=== PATIENT | female | born 1955 | race Caucasian/White ===

== ENCOUNTER 2017-08-06 15:36 | Emergency (ER) | payer OTHER, MEDICARE ==
[~2017-08-06] VITALS: Ht 162.6 cm; Wt 98.4 kg
[~2017-08-06 15:36] MED LIST: ASPIRIN EC81 M1 PO; ASPIRIN81 M4 PO; ATIVAN0.5 M1 PO; CLINDAMYCIN HC300 M1 PO; DILAUDID2 M1 PO; DULOXETINE60 MG PO; HUMALOG PEN100 U/ML SC; INSULIN HUMA100 U/ML SC; LEVOTHYROXIN0.075 M1 PO; LEVOTHYROXINE75 MCG PO; LITHIUM CARBON150 MG PO; LOSARTAN POTASS50 M1 PO; LOSARTAN POTASS50 MG PO; METFORMIN ER500 MG; METFORMIN ER500 MG PO; METFORMIN HCL500 M4 PO; METOPROLOL SUCC25 M1 PO; METOPROLOL SUCC25 MG PO; NOVOLOG100 UNIT/2 SC; NUCYNTA50 MG PO; OMEPRAZOLE20 M2 PO; PERCOCET 325 MG1 TAB PO; PROTONIX40 MG PO; QUESTRAN4 GM/9 GM PO; SIMVASTATIN20 M2 PO; SIMVASTATIN20 MG PO; TORADOL10 MG PO; TRAMADOL HCL50 M1 PO; ULTRAM(MONOGRAP50 MG PO; VISTARIL25 MG PO; VITAMIN B-121000 MC3 PO; VITAMIN C500 M6 PO; VITAMIN D2000 UNI1 PO; VITAMIN E100 UNI2 PO
[2017-08-06 16:19] LABS: ABSOLUTE BASOPHIL COUNT 0 /CUMM (0.0-0.2); ABSOLUTE EOSINOPHIL COUNT 0.4 /CUMM (0.0-0.7); ABSOLUTE LYMPH COUNT 3.6 /CUMM (1.2-3.4); ABSOLUTE MONOCYTE COUNT 0.8 /CUMM (0.10-0.60); BASOPHIL % 0.3 % (0.0-2.0); EOSINOPHIL % 3.4 % (0-5); GRANULOCYTE % 62.2 % (42.2-75.2); HEMATOCRIT 42.9 % (37-47); MEAN CORPUSCULAR HGB 26.6 PG (27.0-31.0); MEAN CORPUSCULAR HGB CONC 33.1 G/DL (33.0-37.0); MEAN CORPUSCULAR VOLUME 80.4 FL (81.0-99.0); MEAN PLATELET VOLUME 8.1 FL (7.4-10.4); PLATELET COUNT 364 /CUMM (130-400); RBC DISTRIBUTION WIDTH 14.7 % (11.5-14.5); RED BLOOD CELL CT 5.33 /CUMM (4.20-5.40); WHITE BLOOD CELL COUNT 12.9 /CUMM (4.8-10.8)
--- NOTE | 2017-08-06 19:50 | ED CARDIAC/CP/PALPITATIONS ---
History of Present Illness General Chief Complaint: Chest Pain Stated Complaint: CP Source: patient, family, old records Exam Limitations: no limitations Vital Signs & Intake/Output Vital Signs & Intake/Output Vital Signs Date Time Temp Pulse Resp B/P B/P Pulse O2 O2 Flow FiO2 Mean Ox Delivery Rate 08/06 1844 97.6 90 20 119/70 98 08/06 1556 98.1 93 18 125/87 96 Room Air Allergies Coded Allergies: Penicillins (Severe, ANAPHYLAXIS 07/01/15) hydrocodone (Intermediate, ITCHY, VOMITING 10/05/15) oxycodone (From PERCOCET) (Intermediate, ITCHING, VOMITING 10/05/15) Reconcile Medications Ascorbate Calcium (Vitamin C) 500 MG TABLET 1 TAB PO DAILY SUPPLEMENT ( Reported) Aspirin (Ecotrin*) 81 MG TABLET. 1 TAB PO DAILY heart health Cholecalciferol (Vitamin D3) (Vitamin D) (Unknown Strength) TABLET (Unknown Dose) PO DAILY SUPPLEMENT (Reported) Cyanocobalamin (Vitamin B-12) (Unknown Strength) TABLET (Unknown Dose) PO DAILY SUPPLEMENT (Reported) Hydromorphone HCl (Dilaudid) 2 MG TABLET 1 TAB PO Q6P PRN PAIN Insulin Aspart (Novolog) (Unknown Strength) VIAL (Unknown Dose) SC DAILY INSULIN PUMP (Reported) Levothyroxine Sodium 75 MCG TABLET 1 TAB PO QPM THYROID (Reported) Lorazepam (Ativan) 0.5 MG TABLET 1 TAB PO DAILY NEEDED PRN ANXIETY/INSOMNIA Losartan Potassium 50 MG TABLET 1 TAB PO DAILY BP (Reported) Metformin HCl (Metformin HCl ER) 500 MG TAB.ER.24H 2 TAB PO QPM DIABETES ( Reported) Metoprolol Succinate 25 MG TAB.ER.24H 1 TAB PO DAILY HEART (Reported) Omeprazole 20 MG CAPSULE. 1 CAP PO DAILY STOMACH HEALTH Simvastatin (Simvastatin*) 20 MG TABLET 1 TAB PO QPM CHOLESTEROL (Reported) Vitamin E Mixed (Vitamin E) (Unknown Strength) TABLET (Unknown Dose) PO DAILY SUPPLEMENT (Reported) Core Measure Meds Pre-Hospital aspirin Triage Note: PT STATES SHE IS HAVING CHEST PAIN IN THE MIDDLE OF HER CHEST WITH NO RADIATING PAIN. PT STATES SHE IS NOT SOB AND WANTED TO LEAVE AFTER HER EKG WAS COMPLETED AND SAID IT WAS OK. PT MADE AWARE THAT THERE ARE OTHER INDICATORS OF [place] THAT EKG. DR. WAGNER SPOKE WITH PT AND CONVINCED HER TO STAY FOR TESTING. Triage Nurses Notes Reviewed? yes Onset: Yesterday Duration: day(s):, intermittent Timing: recent history Quality/Severity: mild, moderate, aching Location: epigastric Radiation: no radiation Activities at Onset: none Prior Chest Pain/Card Workup: non-cardiac, echocardiography Nitro Today/Relief: no nitro taken today Aspirin Today: 325 mg x 1, provided at home Associated Symptoms: abdominal pain LMP (ages 10-50): post menopausal : No Patient currently breastfeeds: No HPI: 1 day prior to admission patient complains of substernal/epigastric discomfort mild to moderate waxing and waning now becoming more constant associated with anorexia. She denies fever chills nausea vomiting diarrhea shortness of breath cough headache dysuria rash bleeding. Past History Travel History Traveled to [place] past 21 day No Medical History Any Pertinent Medical History? see below for history Neurological: NONE EENT: NONE Cardiovascular: hypertension, hyperlipidemia, TACHYCARDIA Respiratory: NONE Gastrointestinal: pancreatitis, post-ERCP pancreatitis 1991, done after cholecystectomy. 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 FH: Alzheimers disease FATHER, , Age 60+; Cause: Myocardial infarction. FH: heart disease SISTER FH: kidney cancer grand mother maternal FH: colon cancer grand mother paternal FH: breast cancer Hx Contributory? No Review of Systems Review of Systems Constitutional: Reports: no symptoms. EENTM: Reports: no symptoms. Respiratory: Reports: no symptoms. Cardiovascular: Reports: see HPI, chest pain. GI: Reports: see HPI, abdominal pain. Genitourinary: Reports: no symptoms. Musculoskeletal: Reports: no symptoms. Skin: Reports: no symptoms. Neurological/Psychological: Reports: no symptoms. Hematologic/Endocrine: Reports: no symptoms. Immunologic/Allergic: Reports: no symptoms. All Other Systems: Reviewed and Negative Physical Exam Physical Exam General Appearance: well developed/nourished, alert, awake, anxious, comfortable , obese Head: atraumatic, normal appearance Eyes: Bilateral: normal appearance, PERRL, EOMI. Ears, Nose, Throat: normal pharynx, normal ENT inspection, hearing grossly normal Neck: normal inspection, supple, full range of motion, no midline tenderness Respiratory: normal breath sounds, chest non-tender, no respiratory distress, quiet respiration, lungs clear Cardiovascular: regular rate/rhythm, normal peripheral pulses, norml femoral pulses equa Peripheral Pulses: 4+ carotid (R), 4+ carotid (L) Gastrointestinal: normal bowel sounds, soft, non-tender, no organomegaly Back: normal inspection, normal range of motion Extremities: normal inspection, normal capillary refill, normal range of motion, no edema Neurologic/Psych: no motor/sensory deficits, awake, alert, oriented x 3, normal gait, normal mood/affect, seaman II-XII nml as tested Reflexes: 2+: bicep (R), bicep (L). Skin: intact, normal color, warm/dry Lymphatic: no anterior cervical marcos Core Measures ACS in differential dx? Yes No ASA d/t Pharmacological CI CVA/TIA Diagnosis Yes Sepsis Present: No Sepsis Focused Exam Completed? No Progress Differential Diagnosis: cholecystitis, costochondritis, hyperkalemia, hypovolemia, pancreatitis, pneumonia Plan of Care: Orders Procedure Date/time Status EKG 08/06 1936 Active TROPONIN LEVEL 08/06 1900 Complete EKG 08/06 1900 Active TROPONIN LEVEL 08/06 1556 Complete LIPASE 08/06 1556 Complete COMPREHENSIVE METABOLIC PANEL 08/06 1556 Complete CBC WITHOUT DIFFERENTIAL 08/06 1556 Complete EKG 08/06 1536 Active Laboratory Tests 08/06/17 193: Troponin I Cancelled 08/06/17 1918: Troponin I < 0.01 08/06/17 1602: Anion Gap 15, Estimated GFR > 60, BUN/Creatinine Ratio 20.0, Glucose 218 H, Calcium 10.1, Total Bilirubin 0.4, AST 17, ALT 21, Alkaline Phosphatase 112, Troponin I < 0.01, Total Protein 7.7, Albumin 4.4, Globulin 3.3, Albumin/ Globulin Ratio 1.3, Lipase 90, CBC w Diff NO MAN DIFF REQ, RBC 5.33, MCV 80.4 L , MCH 26.6 L, MCHC 33.1, RDW 14.7 H, MPV 8.1, Gran % 62.2, Lymphocytes % 28.1, Monocytes % 6.0, Eosinophils % 3.4, Basophils % 0.3, Absolute Granulocytes 8.0 H, Absolute Lymphocytes 3.6 H, Absolute Monocytes 0.8 H, Absolute Eosinophils 0.4, Absolute Basophils 0 Diagnostic Imaging: Viewed by Me: Radiology Read. Discussed w/RAD: Radiology Read. CXR Impression: no acute abnormality Initial ED EKG: normal axis, normal intervals, normal p-waves, normal QRS complex, normal sinus rhythm, nonspecific ST T wave chg Prior EKG: unchanged Repeat EKG: changed (flipped t V2) Rhythm Strip: normal sinus rhythm Comments: Symptoms gone after pepcid, reglan Departure Departure Time of Disposition: 2042 Disposition: HOME OR SELF CARE Condition: Stable Clinical Impression Primary Impression: GERD (gastroesophageal reflux disease) Secondary Impressions: Chest pain syndrome Referrals: Eddi BEDOYA,Trip Rutledge (PCP/Family) Departure Forms: Customer Survey General Discharge Information Prescriptions: Current Visit Scripts Metoclopramide HCl (Reglan) 1 TAB PO 4 TIMES/DAY PRN GI upset #30 TAB 30 minutes before meals and bedtime Famotidine (Pepcid) 1 TAB PO BID #60 TAB Critical Care Note Critical Care Note Critical Care Time: 30-74 min (40)
--- NOTE | 2017-08-06 20:10 | RADIOLOGY REPORT ---
EXAMINATION: XR CHEST CLINICAL INFORMATION: 62-year-old woman with chest pain. COMPARISON: 10/03/2015 chest radiograph TECHNIQUE: 2 views of the chest were obtained. FINDINGS: The lungs are well expanded, without evidence of focal airspace consolidation or overt pulmonary edema. Chronic interstitial prominence appears relatively unchanged. Heart size is within the range of normal. There are no pleural effusions. Degenerative changes are seen throughout the thoracic spine with DISH and endplate remodeling. IMPRESSION: No convincing radiographic evidence of an acute cardiopulmonary process.
[2017-08-06] MEDS ORDERED: REGLAN10 M1 PO (20:45)
[2017-08-06] MEDS ORDERED: PEPCID20 M1 PO (20:45)
[2017-08-06 20:52] VITALS: BP 122/87
== END 2017-08-06 20:52 ==
LOC: ERH 15:36
PROVIDERS: Internal Medicine
DX: K21.9 Gastro-esophageal reflux disease without esophagitis (principal); R07.89 Other chest pain
CPT/HCPCS: 71046; 93005; 93010; 96374; 96375; 99291; J2765

== ENCOUNTER 2017-09-30 21:54 | Inpatient (IN) | payer OTHER, MEDICARE ==
[~2017-09-30] VITALS: Ht 162.6 cm; Wt 55.0 kg
[~2017-09-30 21:54] MED LIST changes: +PEPCID20 M1 PO; +REGLAN10 M1 PO
[2017-09-30 22:40] LABS: ABSOLUTE BASOPHIL COUNT 0 /CUMM (0.0-0.2); ABSOLUTE EOSINOPHIL COUNT 0.4 /CUMM (0.0-0.7); ABSOLUTE GRANULOCYTE CT 10.6 /CUMM (1.4-6.5); ABSOLUTE LYMPH COUNT 1.9 /CUMM (1.2-3.4); ABSOLUTE MONOCYTE COUNT 0.8 /CUMM (0.10-0.60); BASOPHIL % 0.1 % (0.0-2.0); EOSINOPHIL % 2.6 % (0-5); GRANULOCYTE % 77.4 % (42.2-75.2); HEMATOCRIT 40.9 % (37-47); MEAN CORPUSCULAR HGB 26.9 PG (27.0-31.0); MEAN CORPUSCULAR HGB CONC 33.8 G/DL (33.0-37.0); MEAN CORPUSCULAR VOLUME 79.5 FL (81.0-99.0); MEAN PLATELET VOLUME 8.1 FL (7.4-10.4); PLATELET COUNT 291 /CUMM (130-400); RBC DISTRIBUTION WIDTH 14.9 % (11.5-14.5); RED BLOOD CELL CT 5.15 /CUMM (4.20-5.40); WHITE BLOOD CELL COUNT 13.7 /CUMM (4.8-10.8)
[2017-09-30 22:46] LABS: PT 12.7 SEC (9.4-12.5)
--- NOTE | 2017-09-30 23:36 | CT SCAN REPORT ---
EXAMINATION: CT NECK WITH CONTRAST CLINICAL INFORMATION: Neck swelling. Rule out abscess. COMPARISON: None TECHNIQUE: Multidetector volumetric imaging of the neck was performed after administration of 95 mL of Optiray 320 IV contrast. Coronal and sagittal reformatted images were obtained and reviewed. DLP: 548 mGy-cm FINDINGS: There is asymmetric enlargement and abnormal enhancement involving the right parotid gland, suggestive of edema. There is adjacent inflammation. There is no focal mass identified. No evidence of stone. Mildly prominent adjacent lymph nodes are seen. For instance, along the right jugular chain there is a 1.6 cm long axis node, series 2 image 62. The submandibular glands are normal. No contour abnormality is seen within the oral cavity or pharyngeal mucosal space. The laryngeal structures are normal. The parapharyngeal fat is preserved. No extra mucosal soft tissue mass or fluid collection is seen. No retropharyngeal fluid collection is seen. The thyroid gland is somewhat heterogeneous with subcentimeter nodules. The superior mediastinum is unremarkable. The lung apices are clear. The mastoid air cells and visualized portions of the paranasal sinuses are well-aerated. The temporomandibular joints are normal. No periapical disease is identified. No acute osseous abnormality. Multilevel degenerative changes are noted in the spine. The imaged portions of the brain parenchyma are unremarkable. IMPRESSION: Asymmetric prominence of the right parotid gland with increased enhancement and adjacent inflammation, suggestive of parotiditis. Mildly prominent adjacent lymph nodes are likely reactive. There is no fluid collection identified.
--- NOTE | 2017-10-01 00:19 | ED GENERAL ADULT ---
History of Present Illness General Chief Complaint: Facial or Head Injury Stated Complaint: PT RT SIDE OF FACE SWOLLEN TO THE LT SIDE Source: patient Exam Limitations: no limitations Vital Signs & Intake/Output Vital Signs & Intake/Output Vital Signs Date Time Temp Pulse Resp B/P B/P Pulse O2 O2 Flow FiO2 Mean Ox Delivery Rate 10/01 0002 Room Air 09/30 2342 92 20 138/74 96 Room Air 09/30 2211 98.2 99 18 138/80 96 Room Air ED Intake and Output 10/01 0000 09/30 1200 Intake Total 1000 Output Total Balance 1000 Intake, IV 1000 Patient 217 lb Weight Weight Reported by Patient Measurement Method Allergies Coded Allergies: Penicillins (Severe, ANAPHYLAXIS 07/01/15) hydrocodone (Intermediate, ITCHY, VOMITING 10/05/15) oxycodone (From PERCOCET) (Intermediate, ITCHING, VOMITING 10/05/15) Reconcile Medications Ascorbate Calcium (Vitamin C) 500 MG TABLET 1 TAB PO DAILY SUPPLEMENT ( Reported) Aspirin (Ecotrin*) 81 MG TABLET.DR 1 TAB PO DAILY heart health Cholecalciferol (Vitamin D3) (Vitamin D) (Unknown Strength) TABLET (Unknown Dose) PO DAILY SUPPLEMENT (Reported) Cyanocobalamin (Vitamin B-12) (Unknown Strength) TABLET (Unknown Dose) PO DAILY SUPPLEMENT (Reported) Famotidine (Pepcid) 20 MG TABLET 1 TAB PO BID GERD Hydromorphone HCl (Dilaudid) 2 MG TABLET 1 TAB PO Q6P PRN PAIN Insulin Aspart (Novolog) (Unknown Strength) VIAL (Unknown Dose) SC DAILY INSULIN PUMP (Reported) Levothyroxine Sodium 75 MCG TABLET 1 TAB PO QPM THYROID (Reported) Lorazepam (Ativan) 0.5 MG TABLET 1 TAB PO DAILY NEEDED PRN ANXIETY/INSOMNIA Losartan Potassium 50 MG TABLET 1 TAB PO DAILY BP (Reported) Metformin HCl (Metformin HCl ER) 500 MG TAB.ER.24H 2 TAB PO QPM DIABETES ( Reported) Metoclopramide HCl (Reglan) 10 MG TABLET 1 TAB PO 4 TIMES/DAY PRN GI upset 30 minutes before meals and bedtime Metoprolol Succinate 25 MG TAB.ER.24H 1 TAB PO DAILY HEART (Reported) Omeprazole 20 MG CAPSULE.DR 1 CAP PO DAILY STOMACH HEALTH Simvastatin (Simvastatin*) 20 MG TABLET 1 TAB PO QPM CHOLESTEROL (Reported) Vitamin E Mixed (Vitamin E) (Unknown Strength) TABLET (Unknown Dose) PO DAILY SUPPLEMENT (Reported) Triage Note: PT FROM HOME C/O SWELLING FROM PTS RIGHT SIDE OF NECK PROGRESSIVELY SPREADING TO PTS RIGHT SIDE OF FACE AND CHEST PER PT. PT NOTED TO HAVE SWELLING AND REDNESS. PT STATES THE LUMP FORMED ON FRIDAY NIGHT, HAS F/U WITH ENT AND PCP. PCP STATED IT MAY BE A BLOCKED SALVIA GLAND, ENT STATED POSSIBLY RELATED TO DIABETES. PTS BP ELEVATED IN TRIAGE 138/80. PT TAKING TRAMADOL, TYLENOL AND CLINDAMYCIN. BSG IN TRIAGE 242. PT IS ON A NOVOLOG PUMP AND METFORMIN AT HOME. Triage Nurses Notes Reviewed? yes Onset: Abrupt Duration: day(s): (2-3), constant, continues in ED, getting worse Timing: single episode today Injury Environment: home Severity: moderate, severe Severity Numbers: 8 No Modifying Factors: none LMP (ages 10-50): unknown : No Patient currently breastfeeds: No HPI: 62-year-old female history of hypertension hyperlipidemia insulin-dependent diabetes presents for evaluation of pain and swelling in her right parotid area. Patient reports this started about 3 days ago to be getting worse. She is on ear nose and throat doctor and her primary care doctor yesterday and was started on clindamycin which she has been taking without improvement. She points she also tried using lemon drops but this greatly increased her pain. The swelling has been getting worse since starting the antibiotics and is now spreading across the midline of her neck and into her upper jaw. She feels it has been difficult for her to eat and drink because it difficult to open her mouth. She has not had fevers. No drooling. No shortness of breath. No trauma. (Remington James) Past History Travel History Traveled to [place] past 21 day No Medical History Any Pertinent Medical History? see below for history Neurological: NONE EENT: NONE Cardiovascular: hypertension, hyperlipidemia, TACHYCARDIA Respiratory: NONE Gastrointestinal: pancreatitis, post-ERCP pancreatitis 1991, done after cholecystectomy. 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 FH: Alzheimers disease FATHER, , Age 60+; Cause: Myocardial infarction. FH: heart disease SISTER FH: kidney cancer grand mother maternal FH: colon cancer grand mother paternal FH: breast cancer Hx Contributory? No (Remington James) Review of Systems Review of Systems Constitutional: Reports: no symptoms. EENTM: Reports: see HPI, throat pain, throat swelling, mouth pain. Respiratory: Reports: no symptoms. Cardiovascular: Reports: no symptoms. GI: Reports: no symptoms. Genitourinary: Reports: no symptoms. Musculoskeletal: Reports: no symptoms. Skin: Reports: no symptoms. Neurological/Psychological: Reports: no symptoms. Hematologic/Endocrine: Reports: no symptoms. Immunologic/Allergic: Reports: no symptoms. All Other Systems: Reviewed and Negative (Remington James) Physical Exam Physical Exam General Appearance: well developed/nourished, no apparent distress, alert, awake Head: atraumatic, normal appearance Eyes: Bilateral: normal appearance, PERRL, EOMI. Ears, Nose, Throat: hearing grossly normal, THERE IS SWELLING INDURATION AND EXQUISITE TENDERNESS OVER THE RIGHT PAROTID GLAND AREA. tHE SWELLING EXTENDS UP TO THE tmj SUPERIORLY AND THE SUBMANDIBULAR AREA NEAR THE TRACHEA INFERIORLY. tHERE IS NO FOCAL FLUCTUANT AREAS NOTED DISCHARGE NO ERYTHEMA. rANGE OF MOTION OF THE MANDIBLE IS REDUCED DUE TO PAIN AND SWELLING PATIENT IS HANDLING SECRETIONS. eXAMINATION OF THE MOUTH IS REDUCED DUE TO PAIN TRISMUS PRESENT Neck: supple, full range of motion, lymphadenopathy (R), tender lateral Respiratory: normal breath sounds, chest non-tender, no respiratory distress, lungs clear Cardiovascular: regular rate/rhythm, normal peripheral pulses Peripheral Pulses: 2+ radial (R), 2+ radial (L) Gastrointestinal: soft, non-tender Back: normal inspection, normal range of motion, no vertebral tenderness Extremities: normal inspection, normal range of motion, no edema Neurologic/Psych: no motor/sensory deficits, awake, alert, oriented x 3, normal gait Skin: intact, normal color, warm/dry Lymphatic: adenopathy Core Measures ACS in differential dx? No CVA/TIA Diagnosis: No Sepsis Present: No Sepsis Focused Exam Completed? No (Ryan SCHMIDRemington) Progress Differential Diagnoses I considered the following diagnoses in my evaluation of the patient: [ Parotiditis, abscess, mumps, MALIGNANCY ] Plan of Care: Orders Procedure Date/time Status Nothing by Mouth 10/01 B Active Saline Lock 10/01 206 Active Misc Message 10/01 206 Active ED Holding Orders 10/01 206 Active Admit to inpatient 10/01 206 Active Vital Signs 10/01 206 Active Code Status 10/01 206 Active Add-on Test (ER Only) 10/01 0003 Active BLOOD CULTURE 10/01 2 Active LACTIC ACID 09/30 2229 Complete PROTHROMBIN TIME 09/30 2217 Complete COMPREHENSIVE METABOLIC PANEL 09/30 2217 Complete CBC WITHOUT DIFFERENTIAL 09/30 2217 Complete Current Medications Sig/Talon Start time Last Medication Dose Stop Time Status Admin Ketorolac 15 MG ONE ONE 10/01 14 CAN Tromethamine 10/02 15 (Toradol) Ketorolac 0 .STK-MED ONE 10/02 7 CAN Tromethamine (Toradol) Sodium Chloride 1,000 ML ONCE ONE 09/30 2229 AC 10/01 (Normal Saline 0.9%) 10/01 0509 0118 Sodium Chloride 1,000 ML ONCE ONE 09/30 2214 AC 09/30 (Normal Saline 0.9%) 10/01 0454 2237 Laboratory Tests 09/30/172229: Anion Gap 14, Estimated GFR > 60, BUN/Creatinine Ratio 11.7, Glucose 239 H, Lactic Acid 0.8, Calcium 9.4, Total Bilirubin 0.7, AST 19, ALT 28, Alkaline Phosphatase 101, Total Protein 7.3, Albumin 4.0, Globulin 3.3, Albumin/Globulin Ratio 1.2, PT 12.7 H, INR 1.16, CBC w Diff NO MAN DIFF REQ, RBC 5.15, MCV 79.5 L, MCH 26.9 L, MCHC 33.8, RDW 14.9 H, MPV 8.1, Gran % 77.4 H, Lymphocytes % 14.0 L, Monocytes % 5.9, Eosinophils % 2.6, Basophils % 0.1, Absolute Granulocytes 10.6 H, Absolute Lymphocytes 1.9, Absolute Monocytes 0.8 H, Absolute Eosinophils 0.4, Absolute Basophils 0 Microbiology 10/01 25 BLOOD: Blood Culture - RECD 10/02 15 BLOOD: Blood Culture - RECD Patient is here with gradually worsening parotiditis now causing trismus. The swelling extends in the TMJ to the midline trachea. ITis very indurated. Patient is afebrile but has a white count of 13. CT scan shows parotiditis without fluid collection. Patient has been on Clinda but is getting worse. IV fluids Toradol Tylenol ordered. Patient was given a dose of IV Clinda. PT REQUIRES admission to the hospital due to failed outpatient treatment worsening swelling worsening pain trismus not tolerating fluids. She will require IV fluids and IV pain meds IV antibiotics and IV steroids ENT case discussed with Dr. Renteria he agrees Diagnostic Imaging: Viewed by Me: CT Scan. Discussed w/RAD: CT Scan. Radiology Impression: PATIENT: DARWIN MULLEN PRESENT AGE: 62 PATIENT ACCOUNT NO: [id number] : 57 LOCATION: [facility] ORDERING PHYSICIAN: Chavo Fine DO SERVICE DATE: 09/30/17 EXAM TYPE: CAT - CT NECK W IV CONTRAST EXAMINATION: CT NECK WITH CONTRAST CLINICAL INFORMATION: Neck swelling. Rule out abscess. COMPARISON: None TECHNIQUE: Multidetector volumetric imaging of the neck was performed after administration of 95 mL of Optiray 320 IV contrast. Coronal and sagittal reformatted images were obtained and reviewed. DLP: 548 mGy-cm FINDINGS: There is asymmetric enlargement and abnormal enhancement involving the right parotid gland, suggestive of edema. There is adjacent inflammation. There is no focal mass identified. No evidence of stone. Mildly prominent adjacent lymph nodes are seen. For instance, along the right jugular chain there is a 1.6 cm long axis node, series 2 image 62. The submandibular glands are normal. No contour abnormality is seen within the oral cavity or pharyngeal mucosal space. The laryngeal structures are normal. The parapharyngeal fat is preserved. No extra mucosal soft tissue mass or fluid collection is seen. No retropharyngeal fluid collection is seen. The thyroid gland is somewhat heterogeneous with subcentimeter nodules. The superior mediastinum is unremarkable. The lung apices are clear. The mastoid air cells and visualized portions of the paranasal sinuses are well-aerated. The temporomandibular joints are normal. No periapical disease is identified. No acute osseous abnormality. Multilevel degenerative changes are noted in the spine. The imaged portions of the brain parenchyma are unremarkable. IMPRESSION: Asymmetric prominence of the right parotid gland with increased enhancement and adjacent inflammation, suggestive of parotiditis. Mildly prominent adjacent lymph nodes are likely reactive. There is no fluid collection identified. DICTATED BY: Gio Tavarez MD DATE/TIME DICTATED:01/08 PRODUCTION CONSULTANT:FIORELLA DATE/TIME TRANSCRIBED:09/30/172327 CONFIDENTIAL, DO NOT COPY WITHOUT APPROPRIATE AUTHORIZATION. <Electronically signed in Other Vendor System> SIGNED BY: Gio Tavarez MD 09/30/172335 Initial ED EKG: none (Remington James) Departure Departure Disposition: STILL A PATIENT Condition: Stable Referrals: Eddi BEDOYA,Trip Rutledge (PCP/Family) Departure Forms: Customer Survey General Discharge Information Admission Note Spoke With: Nino Ba MD Documentation of Exam: Documentation of any treatments & extenuating circumstances including Concerns Regarding Discharge (functional status, medication knowledge or non-compliance, living conditions, etc.) that warrant an admission rather than observation: [ Serial labs, IV fluids, IV pain meds, IV antibiotics, ENT] (Remington James) Departure Clinical Impression Primary Impression: Parotiditis Secondary Impressions: Sepsis PA/CORE CLEANER Co-Sign Statement Statement: ED Attending supervision documentation- [x] I saw and evaluated the patient. I have also reviewed all the pertinent lab results and diagnostic results. I agree with the findings and the plan of care as documented in the PA's/CORE CLEANER's documentation. 10/01/17, 1:15am... pt with induration and tenderness, that appears to be worsening by patient's history... pt already on oral abx... pt merits iv abx, iv fluids, ent consult in AM... call placed to ENT. [] I have reviewed the ED Record and agree with the PA's/CORE CLEANER's documentation. [] Additions or exceptions (if any) to the PAs/CORE CLEANER's note and plan are summarized below: [] (Dexter BEDOYA,Abhishek Ruiz) Critical Care Note Critical Care Note Critical Care Time: non-applicable (Remington James)
--- NOTE | 2017-10-01 02:57 | History & Physical ---
Ignacio BEDOYA,[facility] 10/01/17 0255: General Information and HPI MD Statement: I have seen and personally examined DARWIN JULES and documented this H&P. The patient is a 62 year old F who presented with a patient stated chief complaint of [FACIAL SWELLING]. Source of Information: patient Exam Limitations: no limitations History of Present Illness: According to patient, she was in her usual state of health until Friday when she incidentally noticed some swelling on the right side of her face. But when she woke up Friday morning the swelling was worse, spreading to her neck and the Parotid area was indurated and extremely tender. She went to see ENT specialist and she was told to use lemon balls made the swelling extremely worse and was also started on clindamycin which she has been taking since yesterday without any relief. She had a very low grade fever of 100 but denies any chills. Also denies any difficulty breathing but does mention difficulty swallowing because of the tenderness. Also reports decreased fluid intake recently. Allergies/Medications Allergies: Coded Allergies: Penicillins (Severe, ANAPHYLAXIS 07/01/15) hydrocodone (Intermediate, ITCHY, VOMITING 10/05/15) oxycodone (From PERCOCET) (Intermediate, ITCHING, VOMITING 10/05/15) Home Med list Ascorbate Calcium (Vitamin C) 500 MG TABLET 1 TAB PO DAILY SUPPLEMENT ( Reported) Aspirin (Ecotrin*) 81 MG TABLET.DR 1 TAB PO DAILY heart health Cholecalciferol (Vitamin D3) (Vitamin D) (Unknown Strength) TABLET (Unknown Dose) PO DAILY SUPPLEMENT (Reported) Cyanocobalamin (Vitamin B-12) (Unknown Strength) TABLET (Unknown Dose) PO DAILY SUPPLEMENT (Reported) Famotidine (Pepcid) 20 MG TABLET 1 TAB PO BID GERD Hydromorphone HCl (Dilaudid) 2 MG TABLET 1 TAB PO Q6P PRN PAIN Insulin Aspart (Novolog) (Unknown Strength) VIAL (Unknown Dose) SC DAILY INSULIN PUMP (Reported) Levothyroxine Sodium 75 MCG TABLET 1 TAB PO QPM THYROID (Reported) Lorazepam (Ativan) 0.5 MG TABLET 1 TAB PO DAILY NEEDED PRN ANXIETY/INSOMNIA Losartan Potassium 50 MG TABLET 1 TAB PO DAILY BP (Reported) Metformin HCl (Metformin HCl ER) 500 MG TAB.ER.24H 2 TAB PO QPM DIABETES ( Reported) Metoprolol Succinate 25 MG TAB.ER.24H 1 TAB PO DAILY HEART (Reported) Omeprazole 20 MG CAPSULE.DR 1 CAP PO DAILY STOMACH HEALTH Simvastatin (Simvastatin*) 20 MG TABLET 1 TAB PO QPM CHOLESTEROL (Reported) Vitamin E Mixed (Vitamin E) (Unknown Strength) TABLET (Unknown Dose) PO DAILY SUPPLEMENT (Reported) Past History Travel History Traveled to [place] past 21 day No Medical History Neurological: NONE EENT: NONE Cardiovascular: hyperlipidemia, TACHYCARDIA Respiratory: NONE Gastrointestinal: pancreatitis, post-ERCP pancreatitis 1991, done after cholecystectomy. 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 FH: Alzheimers disease FATHER, , Age 60+; Cause: Myocardial infarction. FH: heart disease SISTER FH: kidney cancer grand mother maternal FH: colon cancer grand mother paternal FH: breast cancer Psychosocial History Who Do You Live With? spouse, child Services at Home: None Primary Language: Frisian Smoking Status: Former Smoker ETOH Use: denies use Illicit Drug Use: marijuana Living Will? no Power of Deployment Specialist/HCP? no Functional Ability ADLs Independent: dressing, eating, toileting, bathing. Ambulation: independent IADLs Independent: shopping, housework, finances, food prep, telephone, transportation , medication admin. Review of Systems Review of Systems Constitutional: Reports: no symptoms. EENTM: Reports: see HPI. Cardiovascular: Reports: no symptoms. Respiratory: Reports: no symptoms. GI: Reports: no symptoms. Genitourinary: Reports: no symptoms. Musculoskeletal: Reports: no symptoms. Skin: Reports: no symptoms. Neurological/Psychological: Reports: no symptoms. Hematologic/Endocrine: Reports: no symptoms. Immunologic/Allergic: Reports: no symptoms. All Other Systems: Reviewed and Negative Exam & Diagnostic Data Last 24 Hrs of Vital Signs/I&O Vital Signs Date Time Temp Pulse Resp B/P B/P Pulse O2 O2 Flow FiO2 Mean Ox Delivery Rate 10/01 0002 Room Air 09/30 2342 92 20 138/74 96 Room Air 09/30 2211 98.2 99 18 138/80 96 Room Air Intake & Output 10/01 0800 10/01 0000 09/30 1600 Intake Total 1000 Output Total Balance 1000 Intake, IV 1000 Patient 217 lb Weight Weight Reported by Patient Measurement Method Physical Exam General Appearance Alert, Oriented X3, Cooperative, No Acute Distress Skin No Rashes, No Breakdown HEENT Atraumatic, PERRLA, EOMI, Swelling on right side of face extending into neck, indurated and tender to touch. Mild erythema over the neck Cardiovascular Regular Rate, Normal S1, Normal S2 Lungs Clear to Auscultation, Normal Air Movement Abdomen Normal Bowel Sounds, Soft, No Tenderness Extremities No Clubbing, No Cyanosis, No Edema Last 24 Hrs of Labs/Fercho: Laboratory Tests 09/30/17 2230: Anion Gap 14, Estimated GFR > 60, BUN/Creatinine Ratio 11.7, Glucose 239 H, Lactic Acid 0.8, Calcium 9.4, Total Bilirubin 0.7, AST 19, ALT 28, Alkaline Phosphatase 101, Total Protein 7.3, Albumin 4.0, Globulin 3.3, Albumin/Globulin Ratio 1.2, PT 12.7 H, INR 1.16, CBC w Diff NO MAN DIFF REQ, RBC 5.15, MCV 79.5 L, MCH 26.9 L, MCHC 33.8, RDW 14.9 H, MPV 8.1, Gran % 77.4 H, Lymphocytes % 14.0 L, Monocytes % 5.9, Eosinophils % 2.6, Basophils % 0.1, Absolute Granulocytes 10.6 H, Absolute Lymphocytes 1.9, Absolute Monocytes 0.8 H, Absolute Eosinophils 0.4, Absolute Basophils 0 Microbiology 10/01 0026 BLOOD: Blood Culture - RECD 10/01 0016 BLOOD: Blood Culture - RECD Diagnostic Data Other Results CT NECK W IV CONTRAST Asymmetric prominence of the right parotid gland with increased enhancement and adjacent inflammation, suggestive of parotiditis. Mildly prominent adjacent lymph nodes are likely reactive. Assessment/Plan Assessment: Ms Jules is a 60 yr old woman w/ a PMH of DM, post procedural pancreatitis, HLD,HTN, tachycardia, anxiety, bipolar disease, depression and Sciatica who came to the ED w/ a chief concern of right-sided neck swelling. Vitals on admission were temperature 98.9, heart rate 99, respiratory rate 18, BP 130/80 and O2 sats 96% on room air. Labs remarkable for WBC count of 13.7 and blood glucose of 239. Neck Ct showed Asymmetric prominence of the right parotid gland with increased enhancement and adjacent inflammation, suggestive of parotiditis. Mildly prominent adjacent lymph nodes which are likely reactive. Problem List; 1. Acute Parotitis - failed outpatient antibiotic treatment 2. Chronic Medical Conditions - Admit the Patient to general medicine floor - Start the on patient IV clindamycin - Dexamethasone 40mg Q8 - She was given 2 L of normal saline in the ER, will hold off on further IV fluid hydration. - ENT consult - US of Parotid gland - Follow up blood cultures - Warm compresses - Encourage PO fluid intake. - Hold metformin and insulin pump and start the patient on NSS, if blood sugars remains elevated because of steroids change to medium dose SS. - Continue rest of home medications. DVT Prophylaxis; Alps and subcutaneous Lovenox Patient is full code As Ranked By This Provider Problem List: 1. Parotiditis Core Measures/Misc (12/08) Acute Coronary Syndrome ACS Diagnosis: No Congestive Heart Failure Congestive Heart Failure Diagnosis No Cerebrovascular Accident CVA/TIA Diagnosis: No VTE (View Protocol) VTE Risk Factors Age>40 No Mechanical VTE Prophylaxis d/t N/A MechProphylax Ordered No VTE Pharm Prophylaxis d/t NA PharmProphylax ordered Sepsis (View protocol) Sepsis Present: No If YES complete Sepsis Event Note If YES complete Sepsis Event Note Nino Ba MD 10/01/17 0303: Core Measures/Misc (12/08) Sepsis (View protocol) If YES complete Sepsis Event Note If YES complete Sepsis Event Note Attending MD Review Statement Attending Statement Attending MD Statement: examined this patient, discuss w/resident/PA/FIELD CROP GROWER, agreed w/resident/PA/FIELD CROP GROWER, reviewed EMR data (avail) Attending Assessment/Plan: 62F PMH hypertension, hyperlipidemia, pancreatitis, bipolar disease, Type 2 diabetes mellitus with right facial swelling for two days, went to her PCP yesterday and was given lemon candies for salivary stone, with rapid worsening of the swelling that spread to her right face, right neck, and left neck. She denies dysphagia or any difficulty swallowing, but does report right cheek pain when she swallows. She is breathing comfortably without any evidence of stridor or obstruction. She was started on Clindamycin yesterday by her ENT in [place]. Denies fever, chills, stiff neck, photophobia, sore throat, chest pain, SOB. 1. Acute right parotitis 2. Failure of outpatient therapy Plan - Admit to general medicine - Clindamycin IV - Dexamethasone 4mg q6h - Monitor fingersticks closely - ENT consult - Sialogogues - Continue home medications - DVT PPx
[2017-10-01 04:52] VITALS: BP 136/84
[2017-10-01 06:39] VITALS: BP 136/84
[2017-10-01 08:44] LABS: ABSOLUTE BASOPHIL COUNT 0.1 /CUMM (0.0-0.2); ABSOLUTE EOSINOPHIL COUNT 0.4 /CUMM (0.0-0.7); ABSOLUTE GRANULOCYTE CT 6.3 /CUMM (1.4-6.5); ABSOLUTE LYMPH COUNT 2.6 /CUMM (1.2-3.4); ABSOLUTE MONOCYTE COUNT 0.5 /CUMM (0.10-0.60); BASOPHIL % 0.5 % (0.0-2.0); EOSINOPHIL % 3.8 % (0-5); GRANULOCYTE % 64.2 % (42.2-75.2); MEAN CORPUSCULAR HGB 27.4 PG (27.0-31.0); MEAN CORPUSCULAR HGB CONC 33.5 G/DL (33.0-37.0); MEAN CORPUSCULAR VOLUME 81.6 FL (81.0-99.0); MEAN PLATELET VOLUME 8.9 FL (7.4-10.4); PLATELET COUNT 246 /CUMM (130-400); RBC DISTRIBUTION WIDTH 14.4 % (11.5-14.5); RED BLOOD CELL CT 4.37 /CUMM (4.20-5.40); WHITE BLOOD CELL COUNT 9.9 /CUMM (4.8-10.8)
--- NOTE | 2017-10-01 09:16 | PN- Housestaff ---
Burton Simmons 10/01/17 0916: Subjective Follow-up For: Acute parotitis Subjective: Pt seen and examined at bedside. States that she had been sucking on a lemon candy which caused pain. States she also has some difficulties eating and drinking 2/2 pain. Pt states that she has not had any fevers/chills/systemic signs. States her ENT doctor is Dr Fritz. Denied any acute events overnight. Agreeable to go to U/S today. Review of Systems Constitutional: Reports: see HPI. Objective Last 24 Hrs of Vital Signs/I&O Vital Signs Date Time Temp Pulse Resp B/P B/P Pulse O2 O2 Flow FiO2 Mean Ox Delivery Rate 10/01 0831 85 136/84 10/01 0831 85 136/84 10/01 0639 97.7 85 18 136/84 97 10/01 0452 97.7 85 18 136/84 97 10/01 0402 97.7 88 18 114/63 98 Room Air 10/01 0002 Room Air 09/30 2342 92 20 138/74 96 Room Air 09/30 2211 98.2 99 18 138/80 96 Room Air Intake & Output 10/01 1600 10/01 0800 10/01 0000 Intake Total 120 1000 Output Total Balance 120 1000 Intake, IV 1000 Intake, Oral 120 Patient 219 lb 217 lb Weight Weight Reported by Patient Reported by Patient Measurement Method Physical Exam General Appearance: Alert, Oriented X3, Cooperative, No Acute Distress Skin: swelling, R cheek Skin Temp/Moisture Exam: Warm/Dry HEENT: Mucous Membr. moist/pink Lymphatic: Prominent submandibular, preauricular nodes Cardiovascular: Regular Rate, Normal S1, Normal S2 Lungs: Clear to Auscultation, Normal Air Movement Abdomen: Soft, No Tenderness Neurological: Strength at 5/5 X4 Ext, Sensation Intact Extremities: No Edema Assessment/Plan Assessment: Ms Jules is a 62yo F with a pmh of DM, HTN, Anxiety, Bipolar Disorder, depression, pancreatitis that presents with r sided facial/parotid area swelling , failed outpatient therapy of Parotitis, admitted for Acute Parotitis #R sided facial swelling -On clindamycin, day 2 (started September 30) -Consider IVF hydration if patient can't tolerate PO 2/2 pain/swelling -Appreciate ENT consult. Will f/u recs -US of Parotid gland today -Will f/u on blood cultures -Warm compresses -Spoke with outpt ENT BINU Solorio, ENT doctor is Dr Banks ([phone]). PA states she will call ENT doctor later and see if they will see patient. Recommended continued use lemon candy, encourage copious amounts of PO fluid intake, massage of area. States if patient is stable can potentially be discharged and follow-up outpatient. #Diabetes #Hypertension IV access DVT prophylaxis Regular diet Disposition Problem List: 1. Parotitis, acute Pain Ratin Pain Location: R cheek Pain Goal: Pain 4 or less Pain Plan: Pain pathway Tomorrow's Labs & Rationales: freddie LyonsYves 10/01/17 1114: Attending MD Review Statement Attending Statement Attending MD Statement: examined this patient, discuss w/resident/PA/SHAFTING CLEANER, agreed w/resident/PA/SHAFTING CLEANER, discussed with family, reviewed EMR data (avail), discussed with nursing, discussed with case mgmt, reviewed images, amended to note Attending Assessment/Plan: 62F PMH hypertension, hyperlipidemia, pancreatitis, bipolar disease, Type 2 diabetes mellitus with right facial swelling for two days admitted for right parotitis with failure of outpateint therapy. She admites to decreased PO intake. Patient is admitted to general medicine and started on Clindamycin IV, Dexamethasone 4mg q6h. She is clinically improving since admisiosn. Follow Cultures and obtain ENT consult. Trial taper off steroids. Advance diet as tolerated. GI/dvt prophyalxis. full code.
[2017-10-01 09:17] LABS: HEMATOCRIT 35.7 % (37-47)
[2017-10-01 14:22] VITALS: BP 120/80
--- NOTE | 2017-10-01 14:37 | Cons- Ear,Nose&Throat ---
General Information and HPI Consulting Request Date of Consult: 10/01/17 Requested By: Yves Lyons MD Reason for Consult: Acute parotitis, right face and neck swelling, right Source of Information: patient Exam Limitations: no limitations History of Present Illness: 62-year-old female who was in her usual state of health until Friday when she incidentally noticed some swelling on the right side of her face. But when she woke up Friday morning cheek swelling was worse and was spreading to her neck. The area was indurated and extremely tender. She went to see ENT specialist. She was prescribed clindamycin and was told to use lemon balls. Lemon balls made the swelling worse. She then developed low grade fever of 100 but denied any chills. Also denies any difficulty breathing but does mention difficulty swallowing because of the tenderness. Also reports decreased fluid intake recently. She has been experiencing mouth dryness. Allergies/Medications Allergies: Coded Allergies: Penicillins (Severe, ANAPHYLAXIS 07/01/15) hydrocodone (Intermediate, ITCHY, VOMITING 10/05/15) oxycodone (From PERCOCET) (Intermediate, ITCHING, VOMITING 10/05/15) Home Med List: Ascorbate Calcium (Vitamin C) 500 MG TABLET 1 TAB PO DAILY SUPPLEMENT ( Reported) Aspirin (Ecotrin*) 81 MG TABLET.DR 1 TAB PO DAILY heart health Cholecalciferol (Vitamin D3) (Vitamin D) (Unknown Strength) TABLET (Unknown Dose) PO DAILY SUPPLEMENT (Reported) Cyanocobalamin (Vitamin B-12) (Unknown Strength) TABLET (Unknown Dose) PO DAILY SUPPLEMENT (Reported) Famotidine (Pepcid) 20 MG TABLET 1 TAB PO BID GERD Hydromorphone HCl (Dilaudid) 2 MG TABLET 1 TAB PO Q6P PRN PAIN Insulin Aspart (Novolog) (Unknown Strength) VIAL (Unknown Dose) SC DAILY INSULIN PUMP (Reported) Levothyroxine Sodium 75 MCG TABLET 1 TAB PO QPM THYROID (Reported) Lorazepam (Ativan) 0.5 MG TABLET 1 TAB PO DAILY NEEDED PRN ANXIETY/INSOMNIA Losartan Potassium 50 MG TABLET 1 TAB PO DAILY BP (Reported) Metformin HCl (Metformin HCl ER) 500 MG TAB.ER.24H 2 TAB PO QPM DIABETES ( Reported) Metoprolol Succinate 25 MG TAB.ER.24H 1 TAB PO DAILY HEART (Reported) Omeprazole 20 MG CAPSULE.DR 1 CAP PO DAILY STOMACH HEALTH Simvastatin (Simvastatin*) 20 MG TABLET 1 TAB PO QPM CHOLESTEROL (Reported) Vitamin E Mixed (Vitamin E) (Unknown Strength) TABLET (Unknown Dose) PO DAILY SUPPLEMENT (Reported) Past History Medical History Neurological: NONE EENT: NONE Cardiovascular: hyperlipidemia, TACHYCARDIA Respiratory: NONE Gastrointestinal: pancreatitis, post-ERCP pancreatitis 1991, done after cholecystectomy. 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 FH: Alzheimers disease FATHER, , Age 60+; Cause: Myocardial infarction. FH: heart disease SISTER FH: kidney cancer grand mother maternal FH: colon cancer grand mother paternal FH: breast cancer Psychosocial History Where Do You Live? Home Who Do You Live With? spouse, child Services at Home: None Primary Language: Cymro Smoking Status: Former Smoker ETOH Use: denies use Illicit Drug Use: marijuana Living Will? no Power of Therapy Manager/HCP? no Functional Ability ADLs Independent: dressing, eating, toileting, bathing. Ambulation: independent IADLs Independent: shopping, housework, finances, food prep, telephone, transportation , medication admin. Review of Systems Review of Systems: Noncontributory Exam & Diagnostic Data Vital Signs and I&O Vital Signs Date Time Temp Pulse Resp B/P B/P Pulse O2 O2 Flow FiO2 Mean Ox Delivery Rate 10/01 1422 98.0 90 20 120/80 98 10/01 0831 85 136/84 10/01 0831 85 136/84 10/01 0639 97.7 85 18 136/84 97 10/01 0452 97.7 85 18 136/84 97 10/01 0402 97.7 88 18 114/63 98 Room Air 10/01 0002 Room Air 09/30 2342 92 20 138/74 96 Room Air 09/30 2211 98.2 99 18 138/80 96 Room Air Intake & Output 10/01 1600 10/01 0800 10/01 0000 09/30 1600 09/30 0800 09/30 0000 Intake Total 120 1000 Output Total Balance 120 1000 Intake, IV 1000 Intake, Oral 120 Patient 219 lb 217 lb Weight Weight Reported by Patient Reported by Patient Measurement Method Well-developed, well-nourished female without acute distress Head: normocephalic, atraumatic Ears: Canals- clear; Tympanic Membranes- clear Nose: Septum- clear; Turbinates-mild hypertrophy ; Airway-patent Oral cavity: Mucosa-dry; Stensen's duct papillasmall amount of purulent drainage expressed Oropharynx: Posterior wall- clear Face/ Neck: Diffusely enlarged, indurated, markedly tender parotid gland, right Swelling and tenderness spreading onto the upper neck No adenopathy CT neck 09/30/2017: Asymmetric prominence of the right parotid gland with increased enhancement and adjacent inflammation, suggestive of parotiditis. Mildly prominent adjacent lymph nodes are likely reactive. WBC 09/30/17 - 13; 10/01/17- 9.9 Assessment/Plan Assessment/Plan 1. Acute parotitis, right 2. Cheek and upper neck cellulitis, right Continue with IV clindamycin 48 hours Again I would anticipate patient would improve enough to go home on oral clindamycin 300 mg every 6 or every 8 hours Discontinue dexamethasone IV and oral hydration Heat compresses to the area and massage Consult Acknowledgment - Thank you for your consult request.
[2017-10-01 21:37] VITALS: BP 120/60
[2017-10-02 06:35] VITALS: BP 120/70
[2017-10-02] MEDS ORDERED: CLINDAMYCIN HC300 M1 PO ×2 (08:21→10:39)
--- NOTE | 2017-10-02 08:23 | Patient Discharge Instructions ---
Discharge Instructions General Discharge Information Special Instructions: - Please continue taking the Clindamycin and head compresses to the infected area. - Please follow up with your primary care physician within 1-2 weeks of discharge. Inform your primary care physician of this admission to [facility]. - Continue your current medications per discharge instructions. - Please watch for these problems: Fever, Chills, Nausea, Vomiting, Shortness of Breath, Productive Cough, Chest Pain/Discomfort, Abdominal Pain, Active Bleeding or Bloody urine/stool. Diet Continue normal diet: Yes Activity Full Activity/No Limits: Yes Acute Coronary Syndrome Inclusion Criteria At DC or during hospital stay patient has or had the following: ACS DIAGNOSIS No Discharge Core Measures Meds if any: Prescribed or Continued at Discharge Meds if any: NOT Prescribed or Continued at Discharge Congestive Heart Failure Inclusion Criteria At DC or during hospital stay patient has or had the following: CHF DIAGNOSIS No Discharge Core Measures Meds if any: Prescribed or Continued at Discharge Meds if any: NOT Prescribed or Continued at Discharge Cerebrovascular accident Inclusion Criteria At DC or during hospital stay patient has or had the following: CVA/TIA Diagnosis No Discharge Core Measures Meds if any: Prescribed or Continued at Discharge Meds if any: NOT Prescribed or Continued at Discharge Venous thromboembolism Inclusion Criteria VTE Diagnosis No VTE Type NONE VTE Confirmed by (Test) NONE Discharge Core Measures - Per Current guidelines, there needs to be overlap - treatment for the first 5 days of Warfarin therapy. - If discharged on Warfarin prior to 5 days of - overlap therapy, the patient will need to be - assessed for post discharge needs including - *Post discharge parental anticoagulation - *Warfarin and/or parental anticoagulation education - *Follow up date to check INR post discharge At least 5 days overlap therapy as Inpatient No Meds if any: Prescribed or Continued at Discharge Note: Overlap Therapy is Warfarin and Anticoagulant Meds if any: NOT Prescribed or Continued at Discharge
[2017-10-02] MEDS ORDERED: PROBIOTIC1 EACH PO ×2 (10:17→10:39)
--- NOTE | 2017-10-02 10:31 | PN- Housestaff ---
See Addendum Subjective Follow-up For: Parotitis Subjective: Pt seen and examined at bedside. Pt states she feels markedly better since yesterday, ENT doctor saw yesterday evening and had cancelled U/S as patient clinically improved significantly. Pt states she can now tolerate PO intake, yesterday was not able to tolerate. Pt state swelling has gone down significantly with massage, warm compresses, lemon candies. Pt state she would like to go home now due to significantly improved clinical course compared to presentation to ED. Review of Systems Constitutional: Reports: see HPI. Objective Last 24 Hrs of Vital Signs/I&O Vital Signs Date Time Temp Pulse Resp B/P B/P Pulse O2 O2 Flow FiO2 Mean Ox Delivery Rate 10/02 0900 86 120/70 10/02 0900 86 120/70 10/02 0635 97.5 86 20 120/70 98 Room Air 10/01 2137 98.3 105 16 120/60 94 Room Air 10/01 1422 98.0 90 20 120/80 98 Intake & Output 10/02 1600 10/02 0800 10/02 0000 Intake Total 240 480 Output Total Balance 240 480 Intake, Oral 240 480 Patient 121 lb Weight Physical Exam General Appearance: Alert, Oriented X3, Cooperative, No Acute Distress Skin: swelling R cheek, siginificantly improved since admission, tenderness to R cheek improved since admission Lymphatic: reactive preauricular and submandibular nodes Cardiovascular: Regular Rate, Normal S1, Normal S2 Lungs: Clear to Auscultation, Normal Air Movement Abdomen: Soft, No Tenderness Extremities: No Edema Assessment/Plan Assessment: Ms Jules is a 62yo F with a pmh of DM, HTN, Anxiety, Bipolar Disorder, depression, pancreatitis that presents with r sided facial/parotid area swelling , failed outpatient therapy of Parotitis, admitted for Acute Parotitis #R sided facial swelling -Pt was not septic on admission, and has recieved IV clindamycin with rapid improvement on clinical course per patient. Resolved leukocytosis overnight. Stable, afebrile, blood culture without growth. Despite swelling of neck, pt had no signs of shortness of breath or signs of obstruction. -On admission, patient was not able to tolerate PO fluids due to cheek swelling and tenderness; can currently tolerate PO fluids without difficulty -Appreciate ENT consult. Recommended cancelling U/S due to marked pt clinical improvement. ENT appreciates pts rapid improvement and recommended patient can be discharged with oral antibitotics and to hold the steroids. Advises to continue oral antibiotics at home and for continued warm compresses and massage. -US of Parotid gland yesterday was cancelled per ENT due to rapid patient clinical improvement. -Blood culture NGTD -Warm compresses -10/01/17: Spoke with outpt ENT BINU Solorio, ENT doctor is Dr Banks ([phone]). Recommended continued use lemon candy, encourage copious amounts of PO fluid intake, massage of area. States if patient is stable can potentially be discharged and follow-up outpatient. #Diabetes #Hypertension IV access DVT prophylaxis Regular diet Disposition Problem List: 1. Parotitis, acute Pain Ratin Pain Location: R cheek Pain Goal: Pain 4 or less Pain Plan: na Tomorrow's Labs & Rationales: none
--- NOTE | 2017-10-02 13:48 | Discharge Summary ---
Visit Information Visit Dates Admission Date: 10/01/17 Discharge Date: 10/02/17 Hospital Course Course Attending Physician: Yves Lyons MD Primary Care Physician: Trip Montague MD Hospital Course: Ms Jules is a 60 yr old woman w/ a PMH of DM, post procedural pancreatitis, HLD,HTN, tachycardia, anxiety, bipolar disease, depression and Sciatica who came to the ED w/ a chief concern of right-sided neck swelling. According to patient, she was in her usual state of health until Friday when she incidentally noticed some swelling on the right side of her face. But when she woke up Friday morning the swelling was worse, spreading to her neck and the Parotid area was indurated and extremely tender. She went to see ENT specialist and she was told to use lemon balls made the swelling extremely worse and was also started on clindamycin which she has been taking since yesterday without any relief. She had a very low grade fever of 100 but denies any chills. Also denies any difficulty breathing but does mention difficulty swallowing because of the tenderness. Also reports decreased fluid intake recently. Vitals on admission were temperature 98.9, heart rate 99, respiratory rate 18, BP 130/80 and O2 sats 96% on room air. Labs remarkable for WBC count of 13.7 and blood glucose of 239. Neck Ct showed Asymmetric prominence of the right parotid gland with increased enhancement and adjacent inflammation, suggestive of parotiditis. Mildly prominent adjacent lymph nodes which are likely reactive. Pt was admitted to general medicine, scheduled for R cheek U/S, unable to tolerate PO fluids. ENT was consulted , who recommended clindamycin and discontinuation of steroids, and cancellation of U/S due to rapid patient clinical improvement. Pt improved significantly overnight, was able to tolerate PO fluids and had been using warm compresses and massaging swollen cheek. Swelling, erythema, tenderness significantly decreased. Leukocytosis normalized , 13.7-9.9. Was afebrile vitally stable overnight. Patient tolerated p.o. fluids much more, is able to eat solids as well. Patient is discharged with clindamycin and lactobacillus, 3 times daily, for a week course. Patient was instructed to follow-up with her outpatient ENT doctor, and to follow-up with PCP as well, and given strict return precautions. Allergies: Coded Allergies: Penicillins (Severe, ANAPHYLAXIS 07/01/15) hydrocodone (Intermediate, ITCHY, VOMITING 10/05/15) oxycodone (From PERCOCET) (Intermediate, ITCHING, VOMITING 10/05/15) Significant Procedures: Neck CT on September 30, 2017 CT NECK WITH CONTRAST CLINICAL INFORMATION: Neck swelling. Rule out abscess. COMPARISON: None TECHNIQUE: Multidetector volumetric imaging of the neck was performed after administration of 95 mL of Optiray 320 IV contrast. Coronal and sagittal reformatted images were obtained and reviewed. DLP: 548 mGy-cm FINDINGS: There is asymmetric enlargement and abnormal enhancement involving the right parotid gland, suggestive of edema. There is adjacent inflammation. There is no focal mass identified. No evidence of stone. Mildly prominent adjacent lymph nodes are seen. For instance, along the right jugular chain there is a 1.6 cm long axis node, series 2 image 62. The submandibular glands are normal. No contour abnormality is seen within the oral cavity or pharyngeal mucosal space. The laryngeal structures are normal. The parapharyngeal fat is preserved. No extra mucosal soft tissue mass or fluid collection is seen. No retropharyngeal fluid collection is seen. The thyroid gland is somewhat heterogeneous with subcentimeter nodules. The superior mediastinum is unremarkable. The lung apices are clear. The mastoid air cells and visualized portions of the paranasal sinuses are well-aerated. The temporomandibular joints are normal. No periapical disease is identified. No acute osseous abnormality. Multilevel degenerative changes are noted in the spine. The imaged portions of the brain parenchyma are unremarkable. IMPRESSION: Asymmetric prominence of the right parotid gland with increased enhancement and adjacent inflammation, suggestive of parotiditis. Mildly prominent adjacent lymph nodes are likely reactive. There is no fluid collection identified. Pertinent Lab Results: 13.7 white count on September 30 Disposition Summary Disposition Principal Diagnosis: Acute parotitis Additional Diagnosis: Diabetes Discharge Disposition: home or self care Discharge Instructions General Discharge Information Code Status: Full Code Patient's Diet: As tolerated Patient's Activity: As tolerated Follow-Up Instructions/Appts: - Please follow up with your ENT doctor within 1-2 weeks of discharge. - Please follow up with your primary care physician within 1-2 weeks of discharge. Inform your primary care physician of this admission to [facility]. - Continue your current medications per discharge instructions. - Please watch for these problems: Fever, Chills, Nausea, Vomiting, Shortness of Breath, Productive Cough, Chest Pain/Discomfort, Abdominal Pain, Active Bleeding or Bloody urine/stool. Medications at Discharge Discharge Medications: Continue taking these medications: Metformin HCl (Metformin HCl ER) 500 MG TAB.ER.24H 2 Tablet ORAL Every night Qty = 360 Comments: NOT GIVEN Levothyroxine Sodium (Levothyroxine Sodium) 75 MCG TABLET 1 Tablet ORAL Every night Qty = 30 Comments: Last Taken: Time: 0558 Simvastatin (Simvastatin*) 20 MG TABLET 1 Tablet ORAL Every night Qty = 90 Comments: ATORVASTATIN GIVEN IN PLACE Losartan Potassium (Losartan Potassium) 50 MG TABLET 1 Tablet ORAL DAILY Qty = 90 Comments: Last Taken:10/02/17 Time: 0900 Insulin Aspart (Novolog) (Unknown Strength) VIAL Unknown Dose Inject into fatty tissue DAILY Qty = 30 Comments: GIVEN SLIDING SCALE COVERAGE DURING HOSPITAL COURSE Metoprolol Succinate (Metoprolol Succinate) 25 MG TAB.ER.24H 1 Tablet ORAL DAILY Comments: Last Taken:10/02/17 Time: 0900 Cyanocobalamin (Vitamin B-12) (Unknown Strength) TABLET Unknown Dose ORAL DAILY Comments: NOT GIVEN Ascorbate Calcium (Vitamin C) 500 MG TABLET 1 Tablet ORAL DAILY Comments: NOT TAKEN Cholecalciferol (Vitamin D3) (Vitamin D) (Unknown Strength) TABLET Unknown Dose ORAL DAILY Comments: NOT GIVEN Vitamin E Mixed (Vitamin E) (Unknown Strength) TABLET Unknown Dose ORAL DAILY Comments: NOT GIVEN Omeprazole (Omeprazole) 20 MG CAPSULE.DR 1 Capsule ORAL DAILY Qty = 30 Comments: Last Taken:10/02/17 Time:0548 Lorazepam (Ativan) 0.5 MG TABLET 1 Tablet ORAL DAILY NEEDED as needed for ANXIETY/INSOMNIA Qty = 10 Comments: NOT TAKEN DURING HOSPITAL COURSE Aspirin (Ecotrin*) 81 MG TABLET.DR 1 Tablet ORAL DAILY Qty = 30 Comments: Last Taken:10/02/17 Time:0900 Hydromorphone HCl (Dilaudid) 2 MG TABLET 1 Tablet ORAL EVERY SIX HOURS NEEDED as needed for PAIN Qty = 20 Comments: NOT GIVEN Famotidine (Pepcid) 20 MG TABLET 1 Tablet ORAL TWICE DAILY Qty = 60 Comments: NOT GIVEN Start taking the following new medications: Clindamycin HCl (Clindamycin HCl) 300 MG CAPSULE 1 Capsule ORAL THREE TIMES DAILY Qty = 21 No Refills Instructions: . Comments: Last Taken: 10/02/17 Time: Lactobacillus Acidophilus (Probiotic) 10 BILLION CELL CAPSULE 1 Capsule ORAL THREE TIMES DAILY Qty = 30 No Refills Instructions: . Comments: NOT GIVEN Copies To: Eddi BEDOYA,Trip Rutledge Attending MD Review Statement Documenting Attending: Eloy BEDOYA,Yves Other Findings: 62F PMH hypertension, hyperlipidemia, pancreatitis, bipolar disease, Type 2 diabetes mellitus with right facial swelling for two days admitted for right parotitis with failure of outpateint therapy. She admitted to decreased PO intake. She had dramatic improvement since admission. Her USG was orderded but cancelled as ENT felt significant improvement. Steroids discontinued. Advance diet as tolerated. She ate oatmeal today and advance slowly her diet. Discharged Follow up with ENT outpatient.
[2017-10-02 15:02] VITALS: BP 100/50
== END 2017-10-02 19:54 | DRG 156 ==
LOC: ERH 21:54 → ERHI 10-01 02:50 → ENRESERV 10-01 03:43 → 2NB 10-01 04:23 → ENPENDDIS 10-02 11:48 → 2NB 10-02 19:54
PROVIDERS: Emergency Medicine; Internal Medicine
DX: K11.20 Sialoadenitis, unspecified (principal); E78.5 Hyperlipidemia, unspecified; R00.0 Tachycardia, unspecified; F41.9 Anxiety disorder, unspecified; F31.9 Bipolar disorder, unspecified; F32.9 Major depressive disorder, single episode, unspecified; E11.8 Type 2 diabetes mellitus with unspecified complications; I10 Essential (primary) hypertension; K76.0 Fatty (change of) liver, not elsewhere classified
CPT/HCPCS: 2NSBP; 36592; 87040; 96361; 96374; 96375; J0131; J1650; J1885